=== PATIENT | female | born 1955 | race Caucasian/White ===

== ENCOUNTER 2016-12-19 18:44 | Observation (INO) | payer MEDICAID ==
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
[2016-12-19] MEDS ORDERED: NS 500 ML IV ONE (19:07)
[2016-12-19] MEDS ORDERED: LORazepam 2 MG/ML INJ IVP ONE (19:09)
[2016-12-19] MEDS ORDERED: amLODIPine BESYLATE 5 MG TAB PO ONE ×2 (19:09→20:02)
[2016-12-19 19:22] LABS: % IMMATURE GRANULYOCYTES 0.2 % (0.0-1.1); ABSOLUTE IMMATURE GRANULOCYTES 0.02 10^3/uL (0.00-0.10); ADD DIFF? NO; ADD MORPH? NO; ADD SCAN? NO; ATYPICAL LYMPHOCYTE FLAG 0 (0-99); FRAGMENT RBC FLAG 0 (0-99); HEMATOCRIT 41.1 % (38.0-47.0); HEMOGLOBIN 13.3 g/dL (12.6-16.3); LEFT SHIFT FLG 0 (0-99); LIPEMIA HEMOLYSIS FLAG 80 (0-99); MEAN CELL HEMOGLOBIN 26.6 pg (27.9-34.1); MEAN CELL HEMOGLOBIN CONCENTR. 32.4 g/dL (32.4-36.7); MEAN CELL VOLUME 82.2 fL (81.5-99.8); MEAN PLATELET VOLUME 12.8 fL (8.7-11.7); PLATELET CLUMPS FLAG 10 (0-99); PLATELET COUNT 170 10^3/uL (150-400); RED CELL DISTRIBUTION WIDTH 14.3 % (11.5-15.2)
[2016-12-19 19:35] LABS: INR 0.92 (0.83-1.16); PROTIME(PATIENT) 12.3 SEC (12.0-15.0)
[2016-12-19 19:36] LABS: APTT 22.2 SEC (23.0-38.0)
[2016-12-19 19:37] LABS: ALANINE AMINOTRANSFERASE 31 IU/L (9-52); ALKALINE PHOSPHATASE 94 IU/L (38-126); ANION GAP 11 mEq/L (8-16); ASPARTATE AMINOTRANSFERASE 29 IU/L (14-46); BILIRUBIN,TOTAL 0.8 mg/dL (0.1-1.4); BILIRUBIN-CONJUGATED 0.5 mg/dL (0.0-0.5); BILIRUBIN-UNCONJUGATED 0.3 mg/dL (0.0-1.1); CALCIUM 8.9 mg/dL (8.5-10.4); CARBON DIOXIDE 17 mEq/l (22-31); CHLORIDE 114 mEq/L (97-110); CREATININE 0.9 mg/dL (0.6-1.0); GLOMERULAR FILTRATION RATE > 60; GLUCOSE 114 mg/dL (70-100); POTASSIUM 3.9 mEq/L (3.5-5.2); SODIUM 142 mEq/L (134-144); TOTAL PROTEIN 6.8 g/dL (6.3-8.2)
[2016-12-19 19:38] LABS: MAGNESIUM 2.1 mg/dL (1.6-2.3)
--- NOTE | 2016-12-19 19:45 | CPEKG ---
Heart Rate: 70 RR Interval: 857 P-R Interval: 176 QRSD Interval: 96 QT Interval: 428 QTC Interval: 462 P [place]: 8 QRS [place]: 11 T Wave [place]: 29 EKG Severity - BORDERLINE ECG - EKG Impression: SINUS RHYTHM EKG Impression: BORDERLINE T ABNORMALITIES, ANTERIOR LEADS Electronically Signed By: Merritt Baker 19-Dec-2016 21:53:49
[2016-12-19 19:49] LABS: CREATINE KINASE-MB FRACTION 1.09 ng/mL (0-3.19); TROPONIN I 0.013 ng/mL (0-0.034)
[2016-12-19 20:30] LABS: COLOR PALE YELLOW; LEUKOCYTE ESTERASE,URINE NEGATIVE (NEGATIVE); NITRITE,URINE NEGATIVE (NEGATIVE)
[2016-12-19] MEDS ORDERED: hydrALAZINE 20 MG/ML VIAL IVP ONE (20:31)
[2016-12-19 20:35] LABS: BACTERIA TRACE /hpf (NONE SEEN); MUCUS TRACE /lpf (NONE-1+)
[2016-12-19] MEDS ORDERED: ONDANSETRON 4 MG/2 ML VIAL IVP PRN (22:22)
[2016-12-19] MEDS ORDERED: ONDANSETRON DISINTEGRATING 4 MG TAB PO PRN (22:22)
[2016-12-19] MEDS ORDERED: LORazepam 1 MG TAB PO PRN (23:33)
[2016-12-19] MEDS ORDERED: NS 1,000 ML IV SCH (23:45)
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
[2016-12-20] MEDS: ACETAMINOPHEN 325 MG TAB PO PRN ×2 (00:45→10:30)
[2016-12-20 01:59] LABS: HEMATOCRIT 38.8 % (38.0-47.0); HEMOGLOBIN 12.6 g/dL (12.6-16.3); MEAN CELL HEMOGLOBIN 26.3 pg (27.9-34.1); MEAN CELL HEMOGLOBIN CONCENTR. 32.5 g/dL (32.4-36.7); RED BLOOD CELL COUNT 4.79 10^6/uL (4.18-5.33); RED CELL DISTRIBUTION WIDTH 14.1 % (11.5-15.2)
[2016-12-20 02:11] LABS: ANION GAP 9 mEq/L (8-16); CALCIUM 8.9 mg/dL (8.5-10.4); CARBON DIOXIDE 19 mEq/l (22-31); CHLORIDE 116 mEq/L (97-110); CREATININE 0.9 mg/dL (0.6-1.0); GLOMERULAR FILTRATION RATE > 60; GLUCOSE 103 mg/dL (70-100); POTASSIUM 3.5 mEq/L (3.5-5.2); SODIUM 144 mEq/L (134-144)
--- NOTE | 2016-12-20 15:07 | HOSPPROG ---
Hospitalist Progress Note Assessment/Plan: 61 yo F admitted w hypertensive urgency, arm heaviness hypertensive urgency: improved restart amlodipine meth likely playing a role arm heaviness: w non specific ekg chnages stress in AM BRBPR: hct stable refusing further eval FB in abdomen: claims to have FB in abdomen from remote cholecystectomy currently without complaints, eating, moving bowels, so will follow dispo: change to inpt stress in AM Subjective: tele: no events (interp by me). ekg w diffuse flat T's. no prio ( interp by me) Objective: Vital Signs Temp Pulse Resp BP Pulse Ox 36.6 C 74 18 122/89 H 99 12/20/16 12:00 12/20/16 12:00 12/20/16 12:00 12/20/16 12:00 12/20/16 12:00 Laboratory Results 12/20/16 01:34 12/20/16 01:34 12/19/16 12/20/16 12/21/16 05:59 05:59 05:59 Intake Total 1534 Balance 1534 PT 12.3 SEC (12.0-15.0) 12/19/16 19:15 INR 0.92 (0.83-1.16) 12/19/16 19:15 - Physical Exam Constitutional: no apparent distress, appears nourished Eyes: PERRL, anicteric sclera Ears, Nose, Mouth, Throat: moist mucous membranes, hearing normal Cardiovascular: regular rate and rhythym, no murmur, rub, or gallop Respiratory: no respiratory distress, no rales or rhonchi Gastrointestinal: normoactive bowel sounds, soft, non-tender abdomen Genitourinary: no bladder fullness, No manzano in urethra Skin: warm, normal color Musculoskeletal: full muscle strength, no muscle tenderness Neurologic: AAOx3 ICD10 Worksheet Patient Problems: Problems Problem Status Onset Chest pain Acute Methamphetamine abuse Acute SOB (shortness of breath) Acute
[2016-12-21 04:07] VITALS: O2SAT 96
[2016-12-21 07:24] VITALS: RESP 20
[2016-12-21] MEDS ORDERED: amLODIPine BESYLATE 5 MG TAB PO SCH (09:00)
--- NOTE | 2016-12-21 09:30 | HOSPPROG ---
Hospitalist Progress Note Assessment/Plan: 61 yo F admitted w hypertensive urgency, arm heaviness hypertensive urgency: improved restart amlodipine meth likely playing a role arm heaviness: w non specific ekg chnages stress today BRBPR: hct stable refusing further eval FB in abdomen: claims to have FB in abdomen from remote cholecystectomy currently without complaints, eating, moving bowels, so will follow dispo: change to inpt stress in AM Subjective: no events telemetry (interp by me) Objective: Vital Signs Temp Pulse Resp BP Pulse Ox 36.5 C 78 20 119/95 H 96 12/21/16 07:23 12/21/16 07:23 12/21/16 07:23 12/21/16 07:23 12/21/16 07:23 Laboratory Results 12/20/16 01:34 12/20/16 01:34 12/20/16 12/21/16 12/22/16 05:59 05:59 05:59 Intake Total 1534 500 Output Total 1400 Balance 1534 -900 PT 12.3 SEC (12.0-15.0) 12/19/16 19:15 INR 0.92 (0.83-1.16) 12/19/16 19:15 - Physical Exam Constitutional: no apparent distress, appears nourished Eyes: PERRL, anicteric sclera Ears, Nose, Mouth, Throat: moist mucous membranes, hearing normal Cardiovascular: regular rate and rhythym, no murmur, rub, or gallop, No systolic murmur Respiratory: no respiratory distress, no rales or rhonchi Gastrointestinal: normoactive bowel sounds, soft, non-tender abdomen Genitourinary: No manzano in urethra Skin: warm, normal color Musculoskeletal: full muscle strength, no muscle tenderness Neurologic: AAOx3 ICD10 Worksheet Patient Problems: Problems Problem Status Onset Chest pain Acute Methamphetamine abuse Acute SOB (shortness of breath) Acute
[2016-12-21] MEDS ORDERED: REGADENOSON 0.4 MG/5 ML SYR IVP ONE (10:29)
--- NOTE | 2016-12-21 11:13 | CPEKG ---
Heart Rate: 74 RR Interval: 811 P-R Interval: 164 QRSD Interval: 98 QT Interval: 456 QTC Interval: 506 P [place]: 32 QRS [place]: 28 T Wave [place]: 53 EKG Severity - BORDERLINE ECG - EKG Impression: SINUS RHYTHM EKG Impression: BORDERLINE INFERIOR Q WAVES EKG Impression: BORDERLINE PROLONGED QT INTERVAL Electronically Signed By: Bravo Lezama 21-Dec-2016 16:39:09
--- NOTE | 2016-12-21 11:20 | CPR ---
[f rep st] NONINVASIVE CARDIAC PROCEDURE REPORT PROCEDURE PERFORMED: A nuclear Lexiscan stress test. REASON FOR TEST: Chest pain. Resting EKG showed a regular sinus rhythm with a rate of 63. No ischemic changes noted. No arrhythmias noted. Resting blood pressure 126/82. Oxygen saturation 95%. LEXISCAN: Lexiscan was injected rapidly followed by a saline flush. Cardiolite was then injected followed by saline flush per protocol. She did develop a headache with the infusion. Caffeinated soda was given that did help lessen her Headache. Peak heart rate 130/80. Oxygen saturation 97%. Peak heart rate 91. RECOVERY: She spontaneously recovered with resting heart rate 83, blood pressure 130/80, oxygen saturation 97%. No EKG changes noted. At this time, she is ready for imaging. ADDENUM: Five minutes post test prior to imaging she complained of chest discomfort in the epigastric area. EKG was done showing no EKG changes. She reported history of Reflux. The discomfort subsided while on EKG recorder. She again was stable for imaging. /[id number]/MODL MTDD
[2016-12-21 11:52] VITALS: PULSE 75; TEMP 98
[2016-12-21] MEDS: ACETAMINOPHEN 325 MG TAB PO PRN (12:12)
[2016-12-21 12:14] VITALS: BP 122/85
--- NOTE | 2016-12-21 13:50 | GDS ---
[f rep st] DISCHARGE SUMMARY DISCHARGE DIAGNOSIS: 1. Hypertensive urgency. 2. Chest pain. HOSPITAL COURSE: Please see admission History and Physical by Dr. Pam Magallon. The patient pres ented to the hospital on the evening of the with dry cough, heaviness in both arms, but no chest pain. She had a nosebleed the night prior. Her blood pressure was 225/150. She was tox screen po sitive for amphetamine, although she denies using it. She does endorse using marijuana. Workup inc luded a normal noncontrast head CT. She had a nonischemic EKG with negative troponins. She has a h istory of hypertension and had been on Norvasc, but her prescription has lapsed. I restarted it. B lood pressures normalized. DISPOSITION: She is discharged home with a prescription for Norvasc with multiple refills. /[id number]/MODL
--- NOTE | 2016-12-22 07:41 | CPEKG ---
Heart Rate: 76 RR Interval: 789 P-R Interval: 176 QRSD Interval: 100 QT Interval: 400 QTC Interval: 450 P [place]: 47 QRS [place]: 30 T Wave [place]: 73 EKG Severity - NORMAL ECG - EKG Impression: SINUS RHYTHM Electronically Signed By: Ronni Santana 22-Dec-2016 15:51:00
== END 2016-12-21 14:43 | disposition home or self-care (01) ==
LOC: F2W 23:56
PROVIDERS: ADMIT Internal Medicine; ATTEND Internal Medicine
DX: I16.0 Hypertensive urgency (principal); R07.9 Chest pain, unspecified; R06.02 Shortness of breath; R29.898 Other symptoms and signs involving the musculoskeletal system; F15.10 Other stimulant abuse, uncomplicated; R53.83 Other fatigue; R05 Cough; E87.2 Acidosis; R51 Headache; K92.1 Melena; I10 Essential (primary) hypertension; F17.210 Nicotine dependence, cigarettes, uncomplicated; Z91.14 Patient's other noncompliance with medication regimen; Z88.0 Allergy status to penicillin
CPT/HCPCS: 70450; 71010; 78452; 93005; 93017; 96374; 96375; 99285; A9500; G0378; 80305; J0360; J2060; J2785